=== PATIENT | male | born 1980 | race Caucasian/White ===

== ENCOUNTER 2016-07-24 08:37 | Emergency (ER) | payer SELFPAY ==
[~2016-07-24] VITALS: Ht 182.9 cm; Wt 84.9 kg
[2016-07-24 08:39] VITALS: BP 131/79; PULSE 74; RESP 20; TEMP 97.8; O2SAT 99
--- NOTE | 2016-07-24 09:04 | PD ---
HPI Chief Complaint: Medication Refill Request Time Seen by Provider: 09:04 Travel History International Travel<30 days: No Contact w/Intl Traveler<30days: No Traveled to known affect area: No History of Present Illness HPI 35-year-old male with history of bipolar disorder presents to the emergency department requesting a refill of his medication. Patient is new to the area and had an appointment with [facility] today. He states when he went there they advised him that they changed it to August 17. Patient brings his medications with him and has one pill of each left. He is requesting refill until he can get to his appointment. Any acute medical needs. PFSH Past Medical History Anxiety: Yes Depression: Yes Social History Alcohol Use: No Tobacco Use: Yes Substance Use: No Allergies-Medications Reported Meds & Prescriptions Reported Meds & Active Scripts Active Trazodone (Trazodone HCl) 100 Mg Tab 100 Mg PO HS Prozac (Fluoxetine HCl) 20 Mg Cap 20 Mg PO DAILY Trileptal (Oxcarbazepine) 300 Mg Tab 300 Mg PO DAILY Review of Systems Except as stated in HPI: all other systems reviewed are Neg Physical Exam Narrative GENERAL: Well-nourished, well-developed male patient, ambulatory and in no acute distress SKIN: Warm and dry. HEAD: Normocephalic. EYES: No scleral icterus. No injection or drainage. NECK: Supple, trachea midline. No JVD or lymphadenopathy. CARDIOVASCULAR: Regular rate and rhythm without murmurs, gallops, or rubs. RESPIRATORY: Breath sounds equal bilaterally. No accessory muscle use. GASTROINTESTINAL: Abdomen soft, non-tender, nondistended. MUSCULOSKELETAL: No cyanosis, or edema. BACK: Nontender without obvious deformity. No CVA tenderness. Data Data Last Documented VS Vital Signs Date Time Temp Pulse Resp B/P Pulse Ox O2 Delivery O2 Flow Rate FiO2 07/24/16 08:39 97.8 74 20 131/79 99 Room Air MDM Medical Decision Making Medical Screen Exam Complete: Yes Emergency Medical Condition: Yes Medical Record Reviewed: Yes Differential Diagnosis Mood disorder versus personality disorder versus adjustment reaction disorder versus normal examination Narrative Course 35-year-old male presents to the emergency department requesting a refill of his medication.patient brings with him his 3 bottles and 1 pill is noted in each of them. He'll be provided a refill, counseled on appropriate follow-up, and strongly encouraged to keep his appointment at [facility] for August 17.. Diagnosis Primary Impression: Mood disorder Additional Impression: Medication refill Referrals: [facility] Instructions: General Instructions, Medication Refill, ED Additional Instructions: Follow up primary care provider Keep your August 17 appointment with [facility] Return immediately to emergency department with any acute worsening of symptoms Med/Other Pt SpecificInfo: Prescription(s) given Scripts Trazodone 100 Mg [id number] Mg PO HS #30 TAB Ref 0 Prov:Annmarie Jaime 07/24/16 Fluoxetine (Prozac)20 Mg Cap20 Mg PO DAILY #30 CAP Ref 0 Prov:Annmarie Jaime 07/24/16 Oxcarbazepine (Trileptal)300 Mg [id number] Mg PO DAILY #30 TAB Ref 0 Prov:Annmarie Jaime 07/24/16 Disposition: 01 DISCHARGE HOME Condition: Stable Annmarie Jaime Jul 24, 2016 09:04
[2016-07-24] MEDS ORDERED: PROZ20CA11 PO (09:16)
[2016-07-24] MEDS ORDERED: TRAZ100T4 PO (09:16)
[2016-07-24] MEDS ORDERED: TRIL300T PO (09:16)
== END 2016-07-24 09:50 | disposition home or self-care (01) ==
LOC: NEPB 08:37
DX: F39 Unspecified mood [affective] disorder (principal); Z76.0 Encounter for issue of repeat prescription; Z72.0 Tobacco use; Z86.59 Personal history of other mental and behavioral disorders
CPT/HCPCS: 99281

== ENCOUNTER 2016-08-19 11:01 | Emergency (ER) | payer SELFPAY ==
[~2016-08-19] VITALS: Ht 182.9 cm; Wt 86.0 kg
[~2016-08-19 11:01] MED LIST: PROZ20CA11 PO; TRAZ100T4 PO; TRIL300T PO
[2016-08-19 11:02] VITALS: BP 139/84; PULSE 74; RESP 14; TEMP 98.1; O2SAT 97
--- NOTE | 2016-08-19 11:48 | PD ---
HPI . suicide ideation Chief Complaint: Medication Refill Request Time Seen by Provider: 11:46 Travel History International Travel<30 days: No Contact w/Intl Traveler<30days: No Traveled to known affect area: No History of Present Illness HPI 36 yr old male here with c/o suicide thoughts. Patient says he ran out of his medications and has been feeling very anxious and depressed. He tells me that he rather be than feel the way he feels. He says although he feels the medications may help him, he still has this feeling of impending doom and thinks he be better off . He denies any fever, chills, chest pain, nausea, vomiting, abdominal pain or joint pain. PFSH Past Medical History Anxiety: Yes Depression: Yes Hepatitis: Yes (HEP C) Influenza Vaccination: No ?: Not Past Surgical History Surgical History: No Previous Surgery Social History Alcohol Use: No (FORMERLY) Tobacco Use: Yes (1 PPD) Substance Use: No (FORMERLY COCAINE, METH, MARIJUANA) Allergies-Medications (Allergen,Severity, Reaction): Coded Allergies: No Known Allergies (Unverified , 08/19/16) Reported Meds & Prescriptions Reported Meds & Active Scripts Active Trazodone (Trazodone HCl) 100 Mg Tab 100 Mg PO HS Prozac (Fluoxetine HCl) 20 Mg Cap 20 Mg PO DAILY Trileptal (Oxcarbazepine) 300 Mg Tab 300 Mg PO DAILY Review of Systems General / Constitutional: No: Fever Eyes: No: Visual changes HENT: No: Headaches Cardiovascular: No: Chest Pain or Discomfort Respiratory: No: Shortness of Breath Gastrointestinal: No: Abdominal Pain Genitourinary: No: Dysuria Musculoskeletal: No: Pain Skin: No Rash Neurologic: No: Weakness Psychiatric: Positive: Anxiety, Depression, Suicidal Ideations, Mood Disorder Endocrine: No: Polydipsia Hematologic/Lymphatic: No: Easy Bruising Physical Exam Narrative GENERAL: AAO x 3, no acute distress, Well-nourished, well-developed patient. SKIN: Warm and dry. No visible rashes or bruising. HEAD: Normocephalic and atraumatic. EYES: No scleral icterus. No injection or drainage. EOM intact, PERRLA ENT: No nasal drainage noted. Mucous membranes pink. Airway patent. NECK: Supple, trachea midline. No JVD. CARDIOVASCULAR: Regular rate and rhythm without murmurs, gallops, or rubs. RESPIRATORY: Breath sounds equal bilaterally. No accessory muscle use. No rhonchi or rales. GASTROINTESTINAL: Abdomen soft, non-tender, nondistended. EXTREMITIES: No cyanosis or edema. BACK: Nontender without obvious deformity. No CVA tenderness. PSYCH: AAO x 3, flat affect, Data Data Last Documented VS Vital Signs Date Time Temp Pulse Resp B/P Pulse Ox O2 Delivery O2 Flow Rate FiO2 08/19/16 11:02 98.1 74 14 139/84 97 Orders Complete Blood Count With Diff (08/19/16 11:45) Comprehensive Metabolic Panel (08/19/16 11:45) Psych Screen (08/19/16 11:45) Drug Screen, Random Urine (08/19/16 11:45) Alcohol (Ethanol) (08/19/16 11:45) Labs Laboratory Tests Test 08/19/16 12:10 White Blood Count 6.1 TH/MM3 Red Blood Count 4.65 MIL/MM3 Hemoglobin 14.2 GM/DL Hematocrit 40.7 % Mean Corpuscular Volume 87.4 FL Mean Corpuscular Hemoglobin 30.4 PG Mean Corpuscular Hemoglobin 34.8 % Concent Red Cell Distribution Width 12.6 % Platelet Count 185 TH/MM3 Mean Platelet Volume 8.8 FL Neutrophils (%) (Auto) 54.3 % Lymphocytes (%) (Auto) 31.9 % Monocytes (%) (Auto) 8.9 % Eosinophils (%) (Auto) 4.3 % Basophils (%) (Auto) 0.6 % Neutrophils # (Auto) 3.3 TH/MM3 Lymphocytes # (Auto) 1.9 TH/MM3 Monocytes # (Auto) 0.5 TH/MM3 Eosinophils # (Auto) 0.3 TH/MM3 Basophils # (Auto) 0.0 TH/MM3 CBC Comment DIFF FINAL Differential Comment Sodium Level 140 MEQ/L Potassium Level 4.4 MEQ/L Chloride Level 107 MEQ/L Carbon Dioxide Level 29.3 MEQ/L Anion Gap 4 MEQ/L Blood Urea Nitrogen 17 MG/DL Creatinine 1.15 MG/DL Estimat Glomerular Filtration 73 ML/MIN Rate Random Glucose 93 MG/DL Calcium Level 8.9 MG/DL Total Bilirubin 0.4 MG/DL Aspartate Amino Transf 78 U/L (AST/SGOT) Alanine Aminotransferase 204 U/L (ALT/SGPT) Alkaline Phosphatase 60 U/L Total Protein 7.3 GM/DL Albumin 4.2 GM/DL Urine Opiates Screen NEG Urine Barbiturates Screen NEG Urine Amphetamines Screen NEG Urine Benzodiazepines Screen NEG Urine Cocaine Screen NEG Urine Cannabinoids Screen NEG Ethyl Alcohol Level LESS THAN 3 MG/DL MDM Medical Decision Making Medical Screen Exam Complete: Yes Emergency Medical Condition: Yes Medical Record Reviewed: Yes Differential Diagnosis Suicidal ideation, depression, anxiety, mood disorder Narrative Course 36 yr old male here with c/o suicide thoughts. Patient says he ran out of his medications and has been feeling very anxious and depressed. He tells me that he rather be than feel the way he feels. He says although he feels the medications may help him, he still has this feeling of impending doom and thinks he be better off . He denies any fever, chills, chest pain, nausea, vomiting, abdominal pain or joint pain. Patient seen and examined. He does have some suicidal ideation and depression. I will proceed with labs for medical clearance. He will likely benefit from a psych screen, which has been ordered. LFTS are elevated, ? ETOH. NO acute abdominal pain. Will need to f/u as outpatient. I personally discussed with the patient. Patient medically cleared. Diagnosis Primary Impression: Mood disorder Additional Impression: Suicide ideation Condition: Stable Rita Jaimes Aug 19, 2016 11:48
[2016-08-19 12:31] LABS: AUTOMATED NEUTROPHIL # 3.3 TH/MM3 (1.8-7.7); BASOPHIL % 0.6 % (0.0-2.0); EOSINOPHIL # 0.3 TH/MM3 (0-0.4); EOSINOPHIL % 4.3 % (0.0-4.0); HEMATOCRIT 40.7 % (39.0-51.0); HEMO FLAGS DIFF FINAL; LYMPH % 31.9 % (9.0-44.0); LYMPHOCYTE # 1.9 TH/MM3 (1.0-4.8); MEAN CELL VOLUME 87.4 FL (80.0-100.0); MEAN CORPUSCULAR HEMOGLOBIN 30.4 PG (27.0-34.0); MEAN CORPUSCULAR HGB CONC 34.8 % (32.0-36.0); MONO % 8.9 % (0.0-8.0); NEUT % 54.3 % (16.0-70.0); PLATELET COUNT 185 TH/MM3 (150-450); RED BLOOD COUNT 4.65 MIL/MM3 (4.50-5.90); RED CELL DISTRIBUTION WIDTH 12.6 % (11.6-17.2); WHITE BLOOD COUNT 6.1 TH/MM3 (4.0-11.0)
[2016-08-19 12:43] LABS: AMPHETAMINE, URINE NEG (NEG); BARBITURATES, URINE NEG (NEG); COCAINE, URINE NEG (NEG)
[2016-08-19 12:54] LABS: ALT (GPT) 204 U/L (12-78); ANION GAP 4 MEQ/L (5-15); AST (GOT) 78 U/L (15-37); BICARBONATE 29.3 MEQ/L (21.0-32.0); BLOOD UREA NITROGEN 17 MG/DL (7-18); CHLORIDE 107 MEQ/L (98-107); GLOMERULAR FILTRATION RATE 73 ML/MIN (>89); POTASSIUM 4.4 MEQ/L (3.5-5.1); SODIUM (NA) 140 MEQ/L (136-145)
[2016-08-19 12:56] LABS: ALKALINE PHOSPHATASE 60 U/L (45-117); TOTAL BILIRUBIN ADULT 0.4 MG/DL (0.2-1.0)
== END 2016-08-19 17:52 | disposition left against medical advice (07) ==
LOC: NEPA 11:01
DX: F39 Unspecified mood [affective] disorder (principal); R45.851 Suicidal ideations; F41.9 Anxiety disorder, unspecified; F17.210 Nicotine dependence, cigarettes, uncomplicated; F14.21 Cocaine dependence, in remission; Z87.898 Personal history of other specified conditions; F12.21 Cannabis dependence, in remission; F11.21 Opioid dependence, in remission; Z76.0 Encounter for issue of repeat prescription
CPT/HCPCS: 80053; 80307; 85025; 99284

== ENCOUNTER 2017-03-16 11:41 | Emergency (ER) | payer SELFPAY ==
[~2017-03-16] VITALS: Ht 182.9 cm; Wt 91.0 kg
[2017-03-16 11:42] VITALS: BP 129/76; PULSE 67; RESP 13; TEMP 98.9; O2SAT 98
[2017-03-16] MEDS ORDERED: IOHEXOL 350 MG/ML 10 ML VIAL (for RAD DIAG) IVCONTRAST ONE (11:42)
[2017-03-16] MEDS ORDERED: TRAZ100T10 PO (12:52)
--- NOTE | 2017-03-16 13:09 | PD ---
HPI Chief Complaint: Abdominal Pain Time Seen by Provider: 15:30 Travel History International Travel<30 days: No Contact w/Intl Traveler<30days: No Traveled to known affect area: No History of Present Illness HPI 36-year-old male with history of hepatitis C presents to the ED for evaluation of right upper quadrant pain for several months. Patient reports over the last several days he has felt increasingly fatigued prompting his visit today. He reports nausea without vomiting. Occasional constipation and carlitos colored stools. He denies fever or chills. Symptoms severity moderate. No alleviating factors. PFSH Past Medical History Anxiety: Yes Depression: Yes Hepatitis: Yes (HEP C) Tetanus Vaccination: < 5 Years Past Surgical History Surgical History: No Previous Surgery Social History Alcohol Use: No (FORMERLY) Tobacco Use: Yes (1 PPD) Substance Use: No (FORMERLY COCAINE, METH, MARIJUANA) Allergies-Medications (Allergen,Severity, Reaction): Coded Allergies: No Known Allergies (Unverified , 03/16/17) Reported Meds & Prescriptions Reported Meds & Active Scripts Active Prozac (Fluoxetine HCl) 20 Mg Cap 20 Mg PO DAILY Trileptal (Oxcarbazepine) 300 Mg Tab 300 Mg PO DAILY Review of Systems Except as stated in HPI: all other systems reviewed are Neg General / Constitutional: No: Fever Eyes: No: Visual changes HENT: No: Headaches Cardiovascular: No: Chest Pain or Discomfort Respiratory: No: Shortness of Breath Gastrointestinal: Positive: Nausea, Abdominal Pain, Constipation Skin: No Rash Physical Exam Narrative GENERAL: Alert, well-nourished, well-appearing male resting comfortably on the stretcher SKIN: Focused skin assessment warm/dry. No jaundice. HEAD: Atraumatic. Normocephalic. EYES: Pupils equal and round. No scleral icterus. No injection or drainage. ENT: No nasal bleeding or discharge. Mucous membranes pink and moist. NECK: Trachea midline. No JVD. CARDIOVASCULAR: Regular rate and rhythm. No murmur appreciated. RESPIRATORY: No accessory muscle use. Clear to auscultation. Breath sounds equal bilaterally. GASTROINTESTINAL: Abdomen soft, nondistended, ttp right upper quadrant. MUSCULOSKELETAL: No obvious deformities. No clubbing. No cyanosis. No edema. NEUROLOGICAL: Awake and alert. No obvious cranial nerve deficits. Motor grossly within normal limits. Normal speech. PSYCHIATRIC: Appropriate mood and affect; insight and judgment normal. Data Data Last Documented VS Vital Signs Date Time Temp Pulse Resp B/P (MAP) Pulse Ox O2 Delivery O2 Flow Rate FiO2 03/16/17 15:53 66 16 129/74 (92) 99 03/16/17 11:42 98.9 Orders Orders Complete Blood Count With Diff (03/16/17 13:05) Comprehensive Metabolic Panel (03/16/17 13:05) Lipase (03/16/17 13:05) Prothrombin Time / Inr (Pt) (03/16/17 13:05) Act Partial Throm Time (Ptt) (03/16/17 13:05) Iv Access Insert/Monitor (03/16/17 13:05) Ecg Monitoring (03/16/17 13:05) Oximetry (03/16/17 13:05) Ondansetron Inj (Zofran Inj) (03/16/17 13:15) Sodium Chloride 0.9% Flush (Ns Flush) (03/16/17 13:15) Ct Abd/Pel W Iv Contrast(Rout) (03/16/17 13:09) Iohexol 350 Inj (Omnipaque 350 Inj) (03/16/17 11:42) Labs Laboratory Tests Test 03/16/17 13:00 03/16/17 14:30 White Blood Count 7.7 TH/MM3 Red Blood Count 5.03 MIL/MM3 Hemoglobin 15.2 GM/DL Hematocrit 44.5 % Mean Corpuscular Volume 88.3 FL Mean Corpuscular Hemoglobin 30.3 PG Mean Corpuscular Hemoglobin Concent 34.3 % Red Cell Distribution Width 13.6 % Platelet Count 173 TH/MM3 Mean Platelet Volume 9.0 FL Neutrophils (%) (Auto) 56.3 % Lymphocytes (%) (Auto) 30.2 % Monocytes (%) (Auto) 7.7 % Eosinophils (%) (Auto) 5.1 % Basophils (%) (Auto) 0.7 % Neutrophils # (Auto) 4.3 TH/MM3 Lymphocytes # (Auto) 2.3 TH/MM3 Monocytes # (Auto) 0.6 TH/MM3 Eosinophils # (Auto) 0.4 TH/MM3 Basophils # (Auto) 0.1 TH/MM3 CBC Comment DIFF FINAL Differential Comment Prothrombin Time 10.7 SEC Prothromb Time International Ratio 1.0 RATIO Activated Partial Thromboplast Time 26.3 SEC Blood Urea Nitrogen 20 MG/DL Creatinine 1.18 MG/DL Random Glucose 77 MG/DL Total Protein 7.1 GM/DL Albumin 3.9 GM/DL Calcium Level 8.4 MG/DL Alkaline Phosphatase 65 U/L Aspartate Amino Transf (AST/SGOT) 56 U/L Alanine Aminotransferase (ALT/SGPT) 130 U/L Total Bilirubin 0.3 MG/DL Sodium Level 137 MEQ/L Potassium Level 4.4 MEQ/L Chloride Level 104 MEQ/L Carbon Dioxide Level 28.3 MEQ/L Anion Gap 5 MEQ/L Estimat Glomerular Filtration Rate 71 ML/MIN Lipase 227 U/L [facility] Medical Decision Making Medical Screen Exam Complete: Yes Emergency Medical Condition: Yes Differential Diagnosis Hepatitis, biliary disease , pancreatitis, Gastritis Narrative Course 36-year-old male with history of hepatitis C presents for evaluation of right upper quadrant pain and discomfort for several months. Over the last several days patient reports he's become increasingly more fatigued and had noticed a change in the color his stool propping his visit today. He has nausea without vomiting. On exam the patient is well-nourished and well-appearing. CBC: Unremarkable CMP: Unremarkable with the exception of mild elevation of liver enzymes. AST/ ALT 56/130 Coags: Unremarkable Lipase: 227 CT abdomen and pelvis: Normal scan Discussed all diagnostic findings with patient. He reports symptom improvement. His abdomen is soft and nontender. He is clinically stable and ready for discharge. Patient is referred to follow-up with the [facility]. Patient verbalizes understanding and agrees to plan. Diagnosis Primary Impression: Abdominal pain Qualified Codes: R10.9 - Unspecified abdominal pain Referrals: [facility] Additional Instructions: Make an appointment for follow-up with the [facility] Avoid alcohol and acetaminophen/Tylenol Return to the emergency department if he developed new or worsening symptoms. Disposition: 01 DISCHARGE HOME Condition: Stable SelwynCira VELASQUEZ Mar 16, 2017 13:09
[2017-03-16] MEDS ORDERED: ONDANSETRON HCL 4 MG/2 ML VIAL IVP ONE (13:15)
[2017-03-16] MEDS ORDERED: SODIUM CHLORIDE 0.9% FLUSH 10 ML FLUSH IV FLUSH PRN (13:15)
[2017-03-16 13:25] LABS: AUTOMATED NEUTROPHIL # 4.3 TH/MM3 (1.8-7.7); BASOPHIL # 0.1 TH/MM3 (0-0.2); BASOPHIL % 0.7 % (0.0-2.0); EOSINOPHIL # 0.4 TH/MM3 (0-0.4); EOSINOPHIL % 5.1 % (0.0-4.0); HEMATOCRIT 44.5 % (39.0-51.0); HEMOGLOBIN 15.2 GM/DL (13.0-17.0); LYMPH % 30.2 % (9.0-44.0); LYMPHOCYTE # 2.3 TH/MM3 (1.0-4.8); MEAN CELL VOLUME 88.3 FL (80.0-100.0); MEAN CORPUSCULAR HEMOGLOBIN 30.3 PG (27.0-34.0); MEAN CORPUSCULAR HGB CONC 34.3 % (32.0-36.0); MONO % 7.7 % (0.0-8.0); MONOCYTE # 0.6 TH/MM3 (0-0.9); NEUT % 56.3 % (16.0-70.0); PLATELET COUNT 173 TH/MM3 (150-450); RED BLOOD COUNT 5.03 MIL/MM3 (4.50-5.90); RED CELL DISTRIBUTION WIDTH 13.6 % (11.6-17.2); WHITE BLOOD COUNT 7.7 TH/MM3 (4.0-11.0)
[2017-03-16 13:35] LABS: PROTHROMBIN TIME - PATIENT 10.7 SEC (9.8-11.6)
--- NOTE | 2017-03-16 14:33 | RADRPT ---
EXAM DATE/TIME: 03/16/2017 14:11 [place] COMPARISON: No previous studies available for comparison. INDICATIONS : Right upper abdominal pain, constipation. IV CONTRAST: 80 cc Omnipaque 350 (iohexol) IV ORAL CONTRAST: No oral contrast ingested. RADIATION DOSE: 6.84 CTDIvol (mGy) MEDICAL HISTORY : None SURGICAL HISTORY : None. ENCOUNTER: Initial ACUITY: 4 - 6 days PAIN SCALE: 5/10 LOCATION: Right upper quadrant TECHNIQUE: Volumetric scanning of the abdomen and pelvis was performed. Using automated exposure control and ad justment of the mA and/or kV according to patient size, radiation dose was kept as low as reasonably achievable to obtain optimal diagnostic quality images. DICOM format image data is available electro nically for review and comparison. FINDINGS: LOWER LUNGS: The visualized lower lungs are clear. LIVER: Diffusely decreased hepatic density without evidence for volume loss gross focal mass or intrahepatic ductal dilatation. Gallbladder is decompressed. SPLEEN: Normal size without lesion. PANCREAS: Within normal limits. KIDNEYS: Normal in size and shape. There is no mass, stone or hydronephrosis. ADRENAL GLANDS: Within normal limits. VASCULAR: There is no aortic aneurysm. BOWEL/MESENTERY: Appendix is visualized and unremarkable. Bowel appears unremarkable without evidence for obstruction. No pneumatosis or free air. No significant free fluid or obtainable fluid collection. ABDOMINAL WALL: Within normal limits. RETROPERITONEUM: There is no lymphadenopathy. BLADDER: No wall thickening or mass. REPRODUCTIVE: Within normal limits. INGUINAL: There is no lymphadenopathy or hernia. MUSCULOSKELETAL: Within normal limits for patient age. CONCLUSION: 1. No acute CT findings to explain patient's abdominal pain. 2. Normal appendix. 3. Diffusely decreased hepatic density consistent with hepatic steatosis. Lloyd Horn MD on March 16, 2017 at 14:27 Board Certified Radiologist. This report was verified electronically.
[2017-03-16 15:20] LABS: ALKALINE PHOSPHATASE 65 U/L (45-117); TOTAL BILIRUBIN ADULT 0.3 MG/DL (0.2-1.0); TOTAL PROTEIN 7.1 GM/DL (6.4-8.2)
[2017-03-16 15:21] LABS: ALBUMIN 3.9 GM/DL (3.4-5.0); ALT (GPT) 130 U/L (12-78); AST (GOT) 56 U/L (15-37); BICARBONATE 28.3 MEQ/L (21.0-32.0); BLOOD UREA NITROGEN 20 MG/DL (7-18); CALCIUM 8.4 MG/DL (8.5-10.1); CHLORIDE 104 MEQ/L (98-107); CREATININE 1.18 MG/DL (0.60-1.30); GLOMERULAR FILTRATION RATE 71 ML/MIN (>89); GLUCOSE,RANDOM 77 MG/DL (74-106); LIPASE 227 U/L (73-393); SODIUM (NA) 137 MEQ/L (136-145)
[2017-03-16 15:53] VITALS: BP 129/74
== END 2017-03-16 15:54 | disposition home or self-care (01) ==
LOC: NEPD 11:41
DX: K59.00 Constipation, unspecified (principal); R10.9 Unspecified abdominal pain; B19.20 Unspecified viral hepatitis C without hepatic coma; F41.9 Anxiety disorder, unspecified; F32.9 Major depressive disorder, single episode, unspecified; F17.290 Nicotine dependence, other tobacco product, uncomplicated
CPT/HCPCS: 74177; 80053; 83690; 85025; 85610; 85730; 96374; 99285; J2405; Q9967